=== PATIENT | male | born 1985 | race Caucasian/White ===

== ENCOUNTER 2017-10-23 18:02 | Emergency (ER) | payer BC, OTHER ==
[~2017-10-23] VITALS: Ht 177.8 cm; Wt 93.0 kg
[~2017-10-23 18:02] MED LIST: ACHD5005 PO; TRAM50TA2 PO
[2017-10-23] MEDS ORDERED: diphenhydrAMINE 50 MG/ML INJ (BENADRYL) IM ONE (18:30)
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
--- OUTSIDE RECORDS SUMMARY | 2017-10-23 18:36 | XMS REPORT ---
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 kbrose, instructed pt to increase fluids, get plenty of rest, tylenol and motrin for the next 24 hours then prn. pt verbalized understanding PLAN OF CARE VITAL SIGNS Height 70 in 2017-04-09 Weight 213.4 lbs 2017-04-09 Temperature 98.0 degrees Fahrenheit 2017-04-09 Heart Rate 88 bpm 2017-04-09 Respiratory Rate 20 2017-04-09 BMI 30.62 kg/m2 2017-04-09 Blood pressure systolic 130 mmHg 2017-04-09 Blood pressure diastolic 76 mmHg 2017-04-09 MEDICATIONS No Known Medications RESULTS No Results PROCEDURES No Known procedures INSTRUCTIONS MEDICATIONS ADMINISTERED No Known Medications
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
[2017-10-23] MEDS ORDERED: PRD20T PO (18:46)
[2017-10-23 18:56] VITALS: BP 150/67
== END 2017-10-23 18:56 | disposition home or self-care (01) ==
LOC: EDUNIT# 18:02 → ER 18:03
DX: L25.9 Unspecified contact dermatitis, unspecified cause (principal); B35.6 Tinea cruris; Z79.52 Long term (current) use of systemic steroids
CPT/HCPCS: 96372; 99284

== ENCOUNTER 2022-09-30 10:28 | Emergency (ER) | payer SELFPAY ==
[~2022-09-30] VITALS: Ht 175.2 cm; Wt 90.7 kg
[~2022-09-30 10:28] MED LIST changes: +PRD20T PO; -TRAM50TA2 PO; +TRM50T PO
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
[2022-09-30] MEDS ORDERED: Tetanus/Diphtheria/Pertussis (Acell) ADULT Vaccine 0.5 ML IM ONE ×2 (11:00→13:18)
[2022-09-30 11:20] LABS: BILIRUBIN,URINE NEGATIVE (NEGATIVE); CLARITY,URINE CLEAR; COLOR,URINE YELLOW; GLUCOSE, URINE (UA) NEGATIVE (NEGATIVE); KETONES,URINE TRACE (NEGATIVE); LEUKOCYTE ESTERASE ,URINE NEGATIVE (NEGATIVE); NITRITE,URINE NEGATIVE (NEGATIVE); PH,URINE 6.5 (5-9); PROTEIN,URINE NEGATIVE (NEGATIVE)
[2022-09-30 11:21] LABS: BACTERIA,URINE NEGATIVE /HPF; SQUAMOUS EPITHELIAL CELL,UR RARE /HPF
[2022-09-30 11:30] LABS: AMPHETAMINE SCREEN, URINE NEGATIVE (NEGATIVE); BARBITURATE SCREEN URINE NEGATIVE (NEGATIVE); BENZODIAZEPINES SCREEN URINE NEGATIVE (NEGATIVE); CANNABINOID SCREEN, URINE NEGATIVE (NEGATIVE); COCAINE SCREEN URINE NEGATIVE (NEGATIVE); METHADONE STAT NEGATIVE (NEGATIVE); OPIATE SCREEN URINE NEGATIVE (NEGATIVE); OXYCODONE STAT NEGATIVE (NEGATIVE); PROPOXYPHENE STAT NEGATIVE (NEGATIVE); TRICYCLIC ANTIDEPRESSANTS SCRE NEGATIVE (NEGATIVE)
[2022-09-30 11:39] LABS: BASOPHILS # (AUTO) 0.1 10^3/uL (0.0-0.1); BASOPHILS % (AUTO) 1 % (0-10); EOSINOPHILS # (AUTO) 0.1 10^3/uL (0.0-0.3); EOSINOPHILS % (AUTO) 1 % (0-10); HEMATOCRIT 45 % (40-54); LYMPHOCYTES # (AUTO) 1.9 10^3/uL (1.0-4.0); LYMPHOCYTES % (AUTO) 21 % (12-44); MEAN CORPUSCULAR HEMOGLOBIN 33 pg (25-34); MEAN CORPUSCULAR HGB CONC 36 g/dL (32-36); MEAN CORPUSCULAR VOLUME 94 fL (80-99); MEAN PLATELET VOLUME 9.1 fL (9.0-12.2); MONOCYTES # (AUTO) 0.6 10^3/uL (0.0-1.0); MONOCYTES % (AUTO) 7 % (0-12); NEUTROPHILS # (AUTO) 6.3 10^3/uL (1.8-7.8); NEUTROPHILS % (AUTO) 70 % (42-75); PLATELET COUNT 221 10^3/uL (130-400); WHITE BLOOD COUNT 8.9 10^3/uL (4.3-11.0)
[2022-09-30 11:46] LABS: ALBUMIN 4.2 GM/DL (3.2-4.5); CHLORIDE 106 MMOL/L (98-107); SODIUM 139 MMOL/L (135-145)
[2022-09-30 11:49] LABS: GLUCOSE 143 MG/DL (70-105); TOTAL PROTEIN 7.1 GM/DL (6.4-8.2)
[2022-09-30 11:50] LABS: CARBON DIOXIDE 24 MMOL/L (21-32)
[2022-09-30 11:51] LABS: BILIRUBIN,TOTAL 0.6 MG/DL (0.1-1.0)
[2022-09-30 11:53] LABS: ALKALINE PHOSPHATASE 70 U/L (40-136); CREATININE SERUM 0.93 MG/DL (0.60-1.30); GFR ESTIMATED 110
[2022-09-30 11:54] LABS: BUN/CREATININE RATIO 18
[2022-09-30 11:55] LABS: ACETAMINOPHEN < 10 UG/ML (10-30); SALICYLATE < 5.0 MG/DL (5.0-20.0)
[2022-09-30 11:56] LABS: ALANINE AMINOTRANSFERASE 28 U/L (0-55)
[2022-09-30] MEDS ORDERED: POTASSIUM CHLORIDE 20 MEQ TABLET PO ONE (12:00)
[2022-09-30] MEDS ORDERED: IBUPROFEN 600 MG TABLET PO ONE (16:45)
[2022-09-30] MEDS ORDERED: IBUPROFEN 600 MG TABLET PO STA (16:46)
[2022-09-30 16:48] VITALS: BP 144/86
== END 2022-09-30 16:48 ==
LOC: EDUNIT# 10:28 → ER 10:31
DX: S61.512A Laceration without foreign body of left wrist, initial encounter (principal); Z20.822 Contact with and (suspected) exposure to COVID-19; Z23 Encounter for immunization; Z28.310 Unvaccinated for COVID-19; X78.1XXA Intentional self-harm by knife, initial encounter
CPT/HCPCS: 12002; 80053; 80306; 81000; 85025; 87636; 93005; 93041; 99284; G0480 ×3; 36415; 80320; 80329; 90715

== ENCOUNTER 2023-01-20 22:14 | Emergency (ER) | payer SELFPAY ==
[~2023-01-20] VITALS: Ht 175.3 cm; Wt 97.5 kg
[2023-01-20] MEDS ORDERED: FAMOTIDINE INJ 20MG/2ML VIAL IVP STA (22:18)
[2023-01-20] MEDS ORDERED: dexAMETHasone INJ 10 MG/ML 1 ML VIAL IV STA (22:18)
[2023-01-20] MEDS ORDERED: diphenhydrAMINE INJ 50 MG/ML VIAL IVP STA (22:18)
[2023-01-20] MEDS ORDERED: FAMO-356 PO (22:54)
[2023-01-20] MEDS ORDERED: PRD20T PO (22:54)
--- NOTE | 2023-01-20 22:55 | ED Integumentary General ---
General Chief Complaint: Allergic Reaction Stated Complaint: ALLERGIC REACTION Nursing Triage Note: PT AMB TO [facility] 01 W C/O ALLERGIC REACTION, HIVES, AND SCRATCHY FEELING IN THROAT. PT REPORTS HE TOOK PEPTO BISMOL APPROX 1 HR AGO, HIVES APPEARED APPROX 30 MINS LATER. 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 Source: patient History of Present Illness Date Seen by Provider: Jan 20, 2023 Time Seen by Provider: 22:15 Initial Comments 37-year-old male presenting with complaints of developing hives and a rash. He was having some left-sided abdominal cramping pain and took some Pepto-Bismol to help with that. He has taken Pepto-Bismol before without any problems. However within an hour of taking this he started having hives and a rash. He took 50 mg of Benadryl approximately 20 to 30 minutes prior to coming to the emergency department. He did not feel like his symptoms were improving and actually felt like he was getting worse and having more difficulty breathing. He felt like he was coughing and like he was getting a scratchy throat. He does note they have used a new laundry detergent but it has been used for at least the last 2 weeks. He is unaware of any other new medications, foods, detergents, soaps, close, exposures to anything to trigger his symptoms. He denies having symptoms like this previously. Timing/Duration: just prior to arrival Severity: moderate Location: generalized Possible Cause: medications (Possibly the Pepto-Bismol) Modifying Factors: worse with scratching Associated Symptoms: No blisters, No edema, No fever, No flushing, No headache; hives; No jaundice, No malaise, No nasal congestion, No numbness, No pallor, No paresthesia, No petechiae; rash; No sore throat, No swelling/mass/lumps, No tingling Allergies and Home Medications Allergies Coded Allergies: No Known Drug Allergies (Unverified , 05/25/15) Patient Home Medication List Home Medication List Reviewed: Yes Famotidine (Acid Emr Implementation Specialist (FAMOTIDINE)) 20 Mg Tablet, 20 MG PO BID Prescribed by: BENEDICTO MAHMOOD on 01/20/23 8656 Hydrocodone Bit/Acetaminophen (Lortab 5 Mg Tablet) 1 Each Tablet, 1-2 TAB PO Q4H PRN for MODERATE PAIN Prescribed by: ASHA LAWRENCE on 05/28/15 0809 Prednisone (Prednisone) 20 Mg Tab, 40 MG PO DAILY Prescribed by: MELISSA BEAN on 10/23/17 184 Prednisone (Prednisone) 20 Mg Tab, 40 MG PO DAILY Prescribed by: BENEDICTO MAHMOOD on 01/20/23 6212 Tramadol HCl (Tramadol HCl) 50 Mg Tablet, 50 MG PO Q4H PRN for MILD PAIN Prescribed by: ASHA LAWRENCE on 05/28/15 0809 Review of Systems Review of Systems Constitutional: No chills, No diaphoresis, No dizziness, No fever EENTM: No hoarseness, No throat pain, No throat swelling Respiratory: see HPI, cough (On his way to the emergency department) Cardiovascular: No chest pain Gastrointestinal: see HPI; No nausea, No vomiting Genitourinary: no symptoms reported Musculoskeletal: no symptoms reported Skin: see HPI, pruritus, rash Psychiatric/Neurological: Anxiety Past Xcyhezb-Tzrbdh-Dsetzc Hx Patient Social History Tobacco Use?: No Use of E-Cig and/or Vaping dev: Yes E-Cig or Vaping type used: Nicotine Use of E-Cig and/or Vaping Les: Current Everyday User Substance use?: No Alcohol Use?: No Seasonal Allergies Seasonal Allergies: No Past Medical History Surgery/Hospitalization HX: DENIES Surgeries: Yes (LEFT LEG ASHKAN, RIGHT WRIST SCREW) Orthopedic Respiratory: No Cardiac: No Neurological: No Reproductive Disorders: No Sexually Transmitted Disease: No HIV/AIDS: No Genitourinary: No Gastrointestinal: No Musculoskeletal: No Endocrine: No HEENT: No Cancer: No Psychosocial: No Integumentary: No Blood Disorders: No Adverse Reaction/Blood Tranf: No Physical Exam Vital Signs Vital Signs - First Documented 01/20/23 22:15 Temp 36.8 Pulse 77 Resp 18 B/P (MAP) 145/89 (107) Pulse Ox 96 O2 Delivery Room Air Capillary Refill : Less Than 3 Seconds General Appearance: WD/WN, mild distress (Appears anxious) HEENT: PERRL/EOMI, normal ENT inspection, pharynx normal Neck: non-tender, full range of motion, supple, normal inspection Cardiovascular: normal peripheral pulses, regular rate, rhythm Respiratory: chest non-tender, lungs clear, normal breath sounds, no resp iratory distress, no accessory muscle use; No stridor Gastrointestinal: normal bowel sounds, non tender, soft, no pulsatile mass Extremities: normal range of motion, non-tender, normal capillary refill Neurologic/Psychiatric: alert, oriented x 3 Skin: warm/dry, rash (Diffuse erythematous rash consistent with hives) Skin Problem Location: generalized Skin Problem Character: erythema, patchy, rash, urticarial Procedures/Interventions Suture Size: 4-0 Progress/Results/Core Measures Results/Orders My Orders Orders - BENEDICTO MAHMOOD MD Ed Iv/Invasive Line Start (01/20/23 22:18) Diphenhydramine Injection (Diphenhydram (01/20/23 22:18) Dexamethasone Injection (Dexamethasone (01/20/23 22:18) Famotidine Injection (Famotidine Injec (01/20/23 22:18) Vital Signs/I&O 01/20/23 01/20/23 01/20/23 22:15 22:15 23:05 Temp 36.8 Pulse 77 66 Resp 18 18 B/P (MAP) 145/89 (107) 105/88 Pulse Ox 96 97 O2 Delivery Room Air Room Air Room Air Blood Pressure Mean: 107 Progress Progress Note #1: Progress Note Differential diagnosis includes allergic reaction, hives, medication reaction, anxiety reaction. Patient's vital signs look good with oxygen saturation of 98 to 100% on room air. Since he felt like he was having a cough and trouble breathing and was anxious, Will establish peripheral IV access and administer medications. Ordered IV dexamethasone 10 mg for a steroid, and additional Benadryl 50 mg IV for antihistamine, famotidine 20 mg IV for an additional H2 antihistamine. Progress Note #2: Progress Note Patient was exhibiting improvement in his rash and itching. He was no longer having a cough for anxiety. He felt fatigued from the Benadryl. Counseled on follow-up and return precautions. Advised to avoid Pepto-Bismol for now since I cannot say for sure if that was what caused the symptoms. Encouraged him to continue on antihistamine during the day of at least Zyrtec or Claritin. He could also continue the Benadryl but it will make him sleepy. Continue on the famotidine as an H2 antihistamine jazlyn and given 3 additional days of steroid with prednisone 40 mg a day. Advised if symptoms are worsening instead of improving he should be seen again. Departure Impression Primary Impression: Hives Additional Impression: Allergic reaction Qualified Codes: T78.40XA - Allergy, unspecified, initial encounter Disposition: 01 HOME, SELF-CARE Condition: Improved Departure-Patient Inst. Decision time for Depature: 22:53 Referrals: NO,LOCAL PHYSICIAN (PCP) Primary Care Physician [facility] [place] Patient Instructions: Allergic Reaction ED, Hives (DC) Add. Discharge Instructions: Try and avoid Pepto-Bismol in case that was what triggered your symptoms. You could continue to take an antihistamine such as Zyrtec or Claritin during the day so that it will not make you sleepy. Take the famotidine or Pepcid to help from an antihistamine standpoint as well. These medicines will help with any redness and itching as well as the rash. For the next 3 days continue to take the steroids once a day to try and help with the hives and allergic reaction. Check back with your primary care provider for continued concerns. All discharge instructions reviewed with patient and/or family. Voiced understanding. Scripts Famotidine (Acid Emr Implementation Specialist (FAMOTIDINE)) 20 Mg Tablet 20 MG PO BID for Hives for 5 Days, #10 TAB 0 Refills Prov: BENEDICTO MAHMOOD MD 01/20/23 Prednisone (Prednisone) 20 Mg Tab 40 MG PO DAILY for hives for 3 Days, #6 TAB 0 Refills Prov: BENEDICTO MAHMOOD MD 01/20/23 BENEDICTO MAHMOOD MD Jan 20, 2023 22:55
[2023-01-20 23:05] VITALS: BP 105/88
== END 2023-01-20 23:05 | disposition home or self-care (01) ==
LOC: EDUNIT# 22:14 → ER FS 22:15
DX: L50.0 Allergic urticaria (principal); F17.290 Nicotine dependence, other tobacco product, uncomplicated